=== PATIENT | male | born 1940 | race Caucasian/White ===

== ENCOUNTER 2021-08-18 12:35 | Inpatient (IN) ==
[2021-08-18] MEDS ORDERED: 0.9 % SODIUM CHLORIDE 1,000 ML IV ONE ×2 (12:58→12:59)
[2021-08-18] MEDS ORDERED: LOPERAMIDE 2 MG CAPSULE PO ONE (13:00)
[2021-08-18] MEDS ORDERED: ONDANSETRON 4 MG/2 ML VIAL IV ONE (13:00)
--- NOTE | 2021-08-18 13:00 | Emergency Department Note ---
HPI General Chief complaint: Nausea/Vomiting/Diarrhea Stated complaint: diarrhea/dehydration Time Seen by Provider: 08/18/21 12:55 Source: patient and family () Mode of arrival: EMS Limitations: altered mental status (Confusion) and other (Confusion) History of Present Illness HPI Narrative: Narrative: 81-year-old male presents to the emergency department because of diarrhea of 7 days duration along with nausea and vomiting. Patient is a poor historian and unable to provide good history. The reports that he has had poor p.o. intake for the last 2 days has not been eating drinking much for the last week and he has been sleeping a lot for the past week she states he has new confusion. states he had a CVA 3 months ago which left him with significant confusion and a right sided weakness. He is improved substantially since then and able to use his right upper extremity well although he still walks with a walker. She states that it was more significantly less confused a couple weeks ago but now the confusion has returned. Patient has a Pink catheter since the CVA. The patient at times denies any problems at all. Symptoms are constant. Nothing makes them better or worse. Not associated with any known food intake. Moderate symptoms. Related Data Previous Rx's Medication Instructions Recorded clopidogrel 75 mg tablet (Plavix) 75 mg PO QDAY #30 tab 07/31/21 atorvastatin 40 mg tablet (Lipitor) 40 mg PO QHS #90 tab 08/15/21 fluoxetine 20 mg capsule 20 mg PO QDAY #90 cap 08/15/21 hydrochlorothiazide 12.5 mg capsule 12.5 mg PO QDAY #90 cap 08/15/21 losartan 25 mg tablet 25 mg PO QDAY #90 tab 08/15/21 Allergies Allergy/AdvReac Type Severity Reaction Status Date / Time trees Allergy Unknown Unknown Uncoded 08/12/21 08:35 Review of Systems ROS ROS Narrative: Narrative: Limitations: ROS unobtainable due to patients medical condition [facility] Narrative Patient History Narrative: Narrative: Medical/Surgical/Family History All Active Problems Acute dehydration (Acute) Acute hyponatremia (Acute) Hypokalemia (Acute) Nausea vomiting and diarrhea (Acute) Confusion (Acute) Pink catheter in place (Acute) Urinary retention (Acute) Stroke (Acute) Hematoma (Acute) Hand pain, left (Acute) BPH (benign prostatic hyperplasia) (Acute) Nocturia (Acute) Hematuria (Acute) History of hernia repair (Chronic ~2000) Dysuria (Chronic) Hypertension (Chronic) GERD (gastroesophageal reflux disease) (Chronic) Hyperlipidemia (Chronic) Gout (Chronic) No pertinent past medical history (Chronic) History of surgery (Chronic ~1966) History of surgery on arm (Chronic ~1966) Hx of inguinal hernia surgery (Chronic ~2000) Medical History (Updated 08/18/21 @ 16:05 by Diego Adame MD) Dysuria GERD (gastroesophageal reflux disease) Gout Hyperlipidemia Hypertension No pertinent past medical history Surgical History History of hernia repair (~2000) x2 History of surgery (~1966) Left Leg History of surgery on arm (~1966) Lt Family History Father Throat cancer Mother Hypertension Social History Smoking Status: Never smoker Alcohol Intake Frequency: holiday/special occasion only Substance Use: does not use Exam Narrative Narrative: Narrative: General Limitations: altered mental status (Confusion) and other (Confusion) General appearance: Present alert and in no apparent distress Head Head: Present atraumatic and normocephalic Eye Eye: Present normal appearance and EOMI ENT ENT: Present mucous membranes dry Neck Neck: Present full ROM; Absent meningismus Respiratory Respiratory: Present normal lung sounds bilaterally; Absent respiratory distress Cardiovascular Cardiovascular: Present regular rate and normal rhythm Adbominal Abdominal: Present soft; Absent tenderness : Present other (Pink catheter in place) Neurological Neurological: Present alert and other (Confused. Thought the date was 1940. Thought Larry Collins was the president. Knew that he was in a hospital.) Psychiatric Psychiatric: Present normal affect and normal mood Skin Skin: Present warm (WNL), dry and other (Significant excoriation left arm. Patient states pruritic) Course Vital Signs Vital signs: Vital Signs Temperature 97.0 F 08/18/21 12:36 Pulse Rate 85 08/18/21 12:36 Respiratory Rate 16 08/18/21 12:36 Pulse Oximetry (%) 100 08/18/21 12:36 Temperature 97.0 F 08/18/21 12:36 Pulse Rate 81 08/18/21 15:02 Respiratory Rate 22 08/18/21 15:02 Blood Pressure 97/43 08/18/21 15:02 Pulse Oximetry (%) 100 08/18/21 15:02 [facility] MDM Narrative Medical decision making narrative: Narrative: 81-year-old male 3 months status post CVA now presents to the emergency department because of nausea vomiting diarrhea of 7 days duration with increasing confusion. Differential diagnosis includes gastrointestinal infection, persistent CVA symptoms, sepsis, viral versus bacterial infection, other. On arrival temperature was 97 degrees with a pulse ox of 100% on room air. Respiratory rate 16 blood pressure was 81/54 which is quite low. Heart rate was 80. There was concern about possible sepsis of blood cultures were obtained and patient was bolused 2000 mL which was 30 mL/kg and this 65 kg male. White count came back unremarkable hemoglobin greater than 13. Sodium 132 potassium 3.1 bicarb low at 19. Glucose elevated at 106. BUN was elevated at 35 with a creatinine that was elevated at 1.7. Lactic acid level was elevated 3.7. Initial urine showed large leukocytes final urinalysis still pending. I medicated the patient with 4 mg of loperamide p.o. and 4 mg of Zofran IV. The elevated lactic acid level is concerning without a clear reason why. The patient received a 2 L of normal saline and on reevaluation noted that the date was August 18, 2021 although he was unable to name the president and was leaning more towards [place]. I consulted the hospitalist Dr. Melchor who came down evaluated the patient and felt he was appropriate for admission. I ordered 1 g of ceftriaxone IV for the patient. I discussed the case with the . Lab Data Result diagrams: 08/18/21 12:45 08/18/21 12:45 Labs: Lab Results 08/18/21 08/18/21 08/18/21 Range/Units 12:45 12:45 12:45 WBC 10.4 (4.5-11.0) K/mcL RBC 4.63 (4.63-6.08) M/mcL Hgb 13.6 L (13.7-17.5) g/dL Hct 41.2 (40.1-51.0) % MCV 89.0 (80.0-100.0) fL MCH 29.4 (26.0-34.0) pg MCHC 33.0 (31.0-36.0) g/dL RDW 13.0 (11.5-14.5) % Plt Count 383 (140-440) K/mcL MPV 9.0 (7.4-10.4) fL Neut % (Auto) 67.4 (38.0-78.0) % Lymph % (Auto) 13.5 L (15.5-49.0) % [facility] % (Auto) 15.1 H (1.0-12.0) % Eos % (Auto) 3.4 (0.0-7.0) % Baso % (Auto) 0.6 (0.0-2.0) % Lymph # (Auto) 1.41 L (1.50-4.80) K/mcL [facility] # (Auto) 1.57 H (0.10-0.90) K/mcL Eos # (Auto) 0.35 (0.00-0.70) K/mcL Baso # (Auto) 0.06 (0.00-0.30) K/mcL Absolute Neutrophils 7.04 (1.80-8.00) K/mcL VBG Lactic Acid 3.7 H (0.5-2.0) mmol/L Sodium 132 L (133-145) mmol/L Potassium 3.1 L (3.3-5.1) mmol/L Chloride 97 (96-108) mmol/L Carbon Dioxide 19 L (22-30) mmol/L Anion Gap 16.0 (8.0-16.0) BUN 35 H (8-23) mg/dL Creatinine 1.7 H (0.7-1.2) mg/dL GFR Calculation 37 Glucose 106 H (70-105) mg/dL Calcium 9.3 (8.6-10.4) mg/dL Total Bilirubin 0.4 (0.1-1.0) mg/dL AST 30 (<40) U/L ALT 32 (<40) U/L Alkaline Phosphatase 196 H (39-117) U/L Total Protein 7.3 (5.9-8.4) gm/dL Albumin 2.9 L (3.2-5.2) gm/dL Globulin 4.4 H (2.2-3.7) gm/dL Albumin/Globulin Ratio 0.7 L (1.0-2.3) Urine Color Urine Appearance (Clear) Urine pH (5.0-9.0) Ur Specific [place] (1.000-1.035) Urine Protein (Negative) mg/dL Urine Glucose (UA) (Negative) mg/dL Urine Ketones (Negative) mg/dL Urine Occult Blood (Negative) mg/dL Urine Nitrate (Negative) Urine Bilirubin (Negative) mg/dL Urine Urobilinogen mg/dL Ur Leukocyte Esterase (Negative) /uL Urine RBC (0-3) /hpf Urine WBC (0-4) /hpf Ur Squamous Epith Cells (0-4) /hpf Urine Bacteria (0) /hpf Hyaline Casts (0-2) /lph Urine Mucus (None) /hpf Ur Culture Indicated? 08/18/21 Range/Units 13:50 WBC (4.5-11.0) K/mcL RBC (4.63-6.08) M/mcL Hgb (13.7-17.5) g/dL Hct (40.1-51.0) % MCV (80.0-100.0) fL MCH (26.0-34.0) pg MCHC (31.0-36.0) g/dL RDW (11.5-14.5) % Plt Count (140-440) K/mcL MPV (7.4-10.4) fL Neut % (Auto) (38.0-78.0) % Lymph % (Auto) (15.5-49.0) % [facility] % (Auto) (1.0-12.0) % Eos % (Auto) (0.0-7.0) % Baso % (Auto) (0.0-2.0) % Lymph # (Auto) (1.50-4.80) K/mcL [facility] # (Auto) (0.10-0.90) K/mcL Eos # (Auto) (0.00-0.70) K/mcL Baso # (Auto) (0.00-0.30) K/mcL Absolute Neutrophils (1.80-8.00) K/mcL VBG Lactic Acid (0.5-2.0) mmol/L Sodium (133-145) mmol/L Potassium (3.3-5.1) mmol/L Chloride (96-108) mmol/L Carbon Dioxide (22-30) mmol/L Anion Gap (8.0-16.0) BUN (8-23) mg/dL Creatinine (0.7-1.2) mg/dL GFR Calculation Glucose (70-105) mg/dL Calcium (8.6-10.4) mg/dL Total Bilirubin (0.1-1.0) mg/dL AST (<40) U/L ALT (<40) U/L Alkaline Phosphatase (39-117) U/L Total Protein (5.9-8.4) gm/dL Albumin (3.2-5.2) gm/dL Globulin (2.2-3.7) gm/dL Albumin/Globulin Ratio (1.0-2.3) Urine Color Yellow Urine Appearance Hazy A (Clear) Urine pH 6.0 (5.0-9.0) Ur Specific [place] 1.008 (1.000-1.035) Urine Protein Negative (Negative) mg/dL Urine Glucose (UA) Negative (Negative) mg/dL Urine Ketones Negative (Negative) mg/dL Urine Occult Blood Negative (Negative) mg/dL Urine Nitrate Negative (Negative) Urine Bilirubin Negative (Negative) mg/dL Urine Urobilinogen Negative mg/dL Ur Leukocyte Esterase 500 A (Negative) /uL Urine RBC 11 H (0-3) /hpf Urine WBC 20 H (0-4) /hpf Ur Squamous Epith Cells 0 (0-4) /hpf Urine Bacteria Few A (0) /hpf Hyaline Casts 34 H (0-2) /lph Urine Mucus Few A (None) /hpf Ur Culture Indicated? yes ED POC Tests ED POC Tests: SHANT - Influenza A Negative SHANT - Influenza B Negative SHANT - SARS Antigen Negative Discharge Plan Patient/Caregiver Discharge Instructions Pt seen by MEDICAL RECORDS COORDINATOR/PA only: No Clinical Impression: Acute dehydration, Acute hyponatremia, Hypokalemia, Nausea vomiting and diarrhea, Confusion Activity: as instructed Patient Disposition: Xfer Acute Care Hospital Condition: Fair Follow up with: Ryan Durand ARNP [Primary Care Provider] - Prescriptions: No Action atorvastatin [Lipitor] 40 mg tablet 40 mg PO QHS Qty: 90 1RF fluoxetine 20 mg capsule 20 mg PO QDAY Qty: 90 1RF hydrochlorothiazide 12.5 mg capsule 12.5 mg PO QDAY Qty: 90 1RF losartan 25 mg tablet 25 mg PO QDAY Qty: 90 1RF clopidogrel [Plavix] 75 mg tablet 75 mg PO QDAY Qty: 30 5RF
[2021-08-18 13:57] LABS: ALT/SGPT 32 U/L (<40); AST/SGOT 30 U/L (<40); Albumin 2.9 gm/dL (3.2-5.2); Albumin/Globulin Ratio 0.7 (1.0-2.3); Alkaline Phosphatase 196 U/L (39-117); Bilirubin,Total 0.4 mg/dL (0.1-1.0); Blood Urea Nitrogen 35 mg/dL (8-23); Calcium 9.3 mg/dL (8.6-10.4); Carbon Dioxide 19 mmol/L (22-30); Chloride 97 mmol/L (96-108); Globulin 4.4 gm/dL (2.2-3.7); Glomerular Filtration Rate 37; Glucose 106 mg/dL (70-105)
[2021-08-18 14:19] LABS: Basophils # (Auto) 0.06 K/mcL (0.00-0.30); Basophils % (Auto) 0.6 % (0.0-2.0); Eosinophils # (Auto) 0.35 K/mcL (0.00-0.70); Eosinophils % (Auto) 3.4 % (0.0-7.0); Hematocrit 41.2 % (40.1-51.0); Hemoglobin 13.6 g/dL (13.7-17.5); Lymphocytes # (Auto) 1.41 K/mcL (1.50-4.80); Lymphocytes % (Auto) 13.5 % (15.5-49.0); Monocytes # (Auto) 1.57 K/mcL (0.10-0.90); Monocytes % (Auto) 15.1 % (1.0-12.0); Neutrophils % (Auto) 67.4 % (38.0-78.0); Platelet Count 383 K/mcL (140-440); RBC 4.63 M/mcL (4.63-6.08); WBC 10.4 K/mcL (4.5-11.0)
[2021-08-18] MEDS ORDERED: cefTRIAXone 1 GM VIAL IV ONE (15:00)
--- NOTE | 2021-08-18 15:21 | Internal Med History&Physical ---
HPI History of Present Illness Patient information: Note initiated : 08/18/21 at 3:11 pm Service Date, if different from initiated Date: [] Patient: Edward Ardon 81 y/o M admitted on for diarrhea/dehydration. Chief Complaint: [] History of present illness: Mr. Ardon is a 81 year old M Presents to the ED with family for generalized weakness poor oral intake sleeping more than usual diarrhea and low blood pressure. Family take her blood pressure with us this morning systolic was in the 80s. And he seemed to have some confusion along with severely weak and thus brought into the ED. Patient had a stroke about 3 months ago did have effusion after the stroke and also some right side weakness. He still has some residual right-sided weakness per family but the confusion cleared up. Per family he has had poor oral intake for the past week just does not seem to have an appetite. Sleeping more. He just finished the last dose of an antibiotic he has been taking for a urinary tract infection. He does have a chronic Ortiz since a stroke and has been following with urology for urinary retention. In the ED urine dip did show leukocyte esterase although of note patient does have a chronic Ortiz catheter in place. But he was also found to be hypotensive in the ED with systolic of 81 in the ED. Lactate of 3.7. His sodium potassium were mildly low and his BUN/creatinine was elevated. Afebrile no leukocytosis. He did receive IV fluid bolus in the ED which did show some improvement in his mentation while there. Started on Rocephin IV in the ED. He is also had diarrhea lately for the past week he says about 3 times per day. And has had some nausea but no vomiting Review of Systems: Pertinent positives as above. Denies headache/fever/chills/vomiting/chest pain/cough/dyspnea. Remaining 10 point review of systems reviewed negative PFSH PFSH All Active Problems Ortiz catheter in place (Acute) Urinary retention (Acute) Stroke (Acute) Hematoma (Acute) Hand pain, left (Acute) BPH (benign prostatic hyperplasia) (Acute) Nocturia (Acute) Hematuria (Acute) History of hernia repair (Chronic ~2000) Dysuria (Chronic) Hypertension (Chronic) GERD (gastroesophageal reflux disease) (Chronic) Hyperlipidemia (Chronic) Gout (Chronic) No pertinent past medical history (Chronic) History of surgery (Chronic ~1966) History of surgery on arm (Chronic ~1966) Hx of inguinal hernia surgery (Chronic ~2000) Medical History (Updated 07/31/21 @ 14:39 by MARIA G Cuenca) Dysuria GERD (gastroesophageal reflux disease) Gout Hyperlipidemia Hypertension No pertinent past medical history Surgical History History of hernia repair (~2000) x2 History of surgery (~1966) Left Leg History of surgery on arm (~1966) Lt Family History Father Throat cancer Mother Hypertension Social History marital status: occupational status: retired alcohol intake frequency: holiday/special occasion only substance use type: does not use MEDS/ALLERGIES Home Medications and Allergies Home Medications Medication Instructions Recorded Confirmed Type loratadine 10 mg tablet 10 mg PO QDAY 09/26/20 08/12/21 History omeprazole 20 mg tablet,delayed 20 mg PO QDAY 09/26/20 08/12/21 History release bisacodyl 5 mg tablet,delayed 10 mg PO ONCE 07/31/21 08/12/21 History release (Dulcolax (bisacodyl)) clopidogrel 75 mg tablet (Plavix) 75 mg PO QDAY #30 tab 07/31/21 08/12/21 Rx tamsulosin 0.4 mg capsule (Flomax) 0.4 mg PO QDAY 07/31/21 08/12/21 History antibiotic unknown #1 ea 08/12/21 08/12/21 Rx atorvastatin 40 mg tablet (Lipitor) 40 mg PO QHS #90 tab 08/15/21 Rx fluoxetine 20 mg capsule 20 mg PO QDAY #90 cap 08/15/21 Rx hydrochlorothiazide 12.5 mg capsule 12.5 mg PO QDAY #90 cap 08/15/21 Rx losartan 25 mg tablet 25 mg PO QDAY #90 tab 08/15/21 Rx Allergies Allergy/AdvReac Type Severity Reaction Status Date / Time trees Allergy Unknown Unknown Uncoded 08/12/21 08:35 EXAM Constitutional Vitals: Temp Pulse Resp BP Pulse Ox 97.0 F 80 18 96/62 98 08/18/21 12:36 08/18/21 14:46 08/18/21 14:46 08/18/21 14:46 08/18/21 14:46 Exam: General: Alert, Awake, No acute Distress Eyes/N/T: EOMI, PERRL, dry MM Head/Neck: neck supple, normocephalic atraumatic CV: RRR, No murmurs, normal s1/s2 Pulm: Clear b/l, no wheezing/rhonchi/rales Abd: soft, nontender, +BS x4, Ortiz catheter in place Ext: no clubbing/cyanosis/edema Neuro: Alert, moves all extremities, CN 2-12 grossly intact, sensations intact b/l upper/lower Skin: warm/dry DATA Data Completed and Pending Labs: Labs from last 24 hours 08/18/21 08/18/21 08/18/21 13:50 12:45 12:45 WBC RBC Hgb Hct MCV MCH MCHC RDW Plt Count MPV Neut % (Auto) Lymph % (Auto) [place] % (Auto) Eos % (Auto) Baso % (Auto) Lymph # (Auto) [place] # (Auto) Eos # (Auto) Baso # (Auto) Absolute Neutrophils VBG Lactic Acid 3.7 H Sodium 132 L Potassium 3.1 L Chloride 97 Carbon Dioxide 19 L Anion Gap 16.0 BUN 35 H Creatinine 1.7 H GFR Calculation 37 Glucose 106 H Calcium 9.3 Total Bilirubin 0.4 AST 30 ALT 32 Alkaline Phosphatase 196 H Total Protein 7.3 Albumin 2.9 L Globulin 4.4 H Albumin/Globulin Ratio 0.7 L Urine Color Pending Urine Appearance Pending Urine pH Pending Ur Specific [place] Pending Urine Protein Pending Urine Glucose (UA) Pending Urine Ketones Pending Urine Occult Blood Pending Urine Nitrate Pending Urine Bilirubin Pending Urine Urobilinogen Pending Ur Leukocyte Esterase Pending 08/18/21 12:45 WBC 10.4 RBC 4.63 Hgb 13.6 L Hct 41.2 MCV 89.0 MCH 29.4 MCHC 33.0 RDW 13.0 Plt Count 383 MPV 9.0 Neut % (Auto) 67.4 Lymph % (Auto) 13.5 L [place] % (Auto) 15.1 H Eos % (Auto) 3.4 Baso % (Auto) 0.6 Lymph # (Auto) 1.41 L [place] # (Auto) 1.57 H Eos # (Auto) 0.35 Baso # (Auto) 0.06 Absolute Neutrophils 7.04 VBG Lactic Acid Sodium Potassium Chloride Carbon Dioxide Anion Gap BUN Creatinine GFR Calculation Glucose Calcium Total Bilirubin AST ALT Alkaline Phosphatase Total Protein Albumin Globulin Albumin/Globulin Ratio Urine Color Urine Appearance Urine pH Ur Specific [place] Urine Protein Urine Glucose (UA) Urine Ketones Urine Occult Blood Urine Nitrate Urine Bilirubin Urine Urobilinogen Ur Leukocyte Esterase A/P Narrative A/P Narrative: A: *UTI?: Although chronic Ortiz makes urinalysis difficult to interpret patient has been on antibiotics recently *possible sepsis w/Lactic acidosis: *Hypotension: 2/2 sepsis vs Hypovolemia (poor oral intake/diarrhea) & ARB/diuretics *Encephalopathy: 2/2 above *Hyponatremia/hypokalemia, mild *MEEK on CKD III: *Volume depletion: *Non-gap Acidosis: 2/2 diarrhea *h/o CVA w/residual mild right hemiparesis: on plavix/statin *UR w/chronic ortiz: Follows with urology *HTN: on ARB/HCTZ *Depression: *GERD: *Diarrhea: P: -IVF, follow-up lactate -Rocephin pending UC -stool cx & C. difficile -change ortiz -hold ARB/HCTZ for hypotension & MEEK -cont plavix/statin -Home medication reconciliation -PT/OT -ppx: Lovenox / home PPI DNR Time Spent With Patient Time: Total time spent is greater than 50% in coordination of care (as documented) at patient's floor/unit and/or counseling patient:
[2021-08-18 15:26] LABS: Appearance,Urine HAZY (Clear); Bacteria,Urine FEW /hpf (0); Bilirubin,Urine Negative (Negative); Color,Urine YELLOW; Culture Indicated,Urine yes; Glucose,Urine (UA) Negative (Negative); Ketones,Urine Negative (Negative); Leukocyte Esterase,Urine 500 /uL (Negative); Mucus,Urine FEW /hpf; Nitrate,Urine Negative (Negative); Protein,Urine Negative (Negative); Specific Gravity,Urine 1.008 (1.000-1.035); Urine Blood Negative (Negative); Urine Hyaline Cast 34 /lph (0-2); Urine RBC 11 /hpf (0-3); Urine Squamous Epithelial Cell 0 /hpf (0-4); Urine WBC 20 /hpf (0-4); Urobilinogen,Urine Negative
[2021-08-18] MEDS ORDERED: ONDANSETRON 4 MG/2 ML VIAL IV PRN (16:44)
[2021-08-18] MEDS ORDERED: MAGNESIUM SULFATE 2 GM/50 ML BAG IV PRN (16:44)
[2021-08-18] MEDS ORDERED: cefTRIAXone 1 GM in DEXTROSE 5% IN WATER 50 ML IV SCH (16:44)
[2021-08-18] MEDS ORDERED: ACETAMINOPHEN 325 MG TABLET PO PRN (16:44)
[2021-08-18] MEDS ORDERED: POTASSIUM CHLORIDE 20 MEQ TABLET PO ONE (16:44)
[2021-08-18] MEDS ORDERED: POTASSIUM CHLORIDE 40 MEQ in DEXTROSE 5% IN WATER 500 ML IV PRN (16:44)
[2021-08-18] MEDS ORDERED: POTASSIUM CHLORIDE 20 MEQ TABLET PO PRN ×2 (16:44)
[2021-08-18] MEDS ORDERED: IPRATROPIUM/ALBUTEROL 3 ML AMPUL.NEB NEB PRN (16:44)
[2021-08-18] MEDS: 0.9 % SODIUM CHLORIDE 1,000 ML IV SCH (17:31)
[2021-08-19] MEDS: 0.9 % SODIUM CHLORIDE 10 ML SYRINGE IV SCH ×4 (00:43→21:02)
[2021-08-19] MEDS: 0.9 % SODIUM CHLORIDE 1,000 ML IV SCH (07:37)
[2021-08-19] MEDS: PANTOPRAZOLE 40 MG TABLET PO SCH (07:38)
--- NOTE | 2021-08-19 07:59 | Internal Med Progress Note ---
SUBJECTIVE Subjective Patient information: Note initiated : 08/19/21 at 7:56 am Service Date, if different from initiated Date: [] Patient: Edward Ardon 81 y/o M admitted on 08/18/21 for diarrhe a/dehydration. Chief Complaint: [] Interval history: History of present illness: Mr. Ardon is a 81 year old M Presents to the ED with family for generalized weakness poor oral intake sleeping more than usual diarrhea and low blood pressure. Family take her blood pressure with us this morning systolic was in the 80s. And he seemed to have some confusion along with severely weak and thus brought into the ED. Patient had a stroke about 3 months ago did have effusion after the stroke and also some right side weakness. He still has some residual right-sided weakness per family but the confusion cleared up. Per family he has had poor oral intake for the past week just does not seem to have an appetite. Sleeping more. He just finished the last dose of an antibiotic he has been taking for a urinary tract infection. He does have a chronic Ortiz since a stroke and has been following with urology for urinary retention. In the ED urine dip did show leukocyte esterase although of note patient does have a chronic Ortiz catheter in place. But he was also found to be hypotensive in the ED with systolic of 81 in the ED. Lactate of 3.7. His sodium potassium were mildly low and his BUN/creatinine was elevated. Afebrile no leukocytosis. He did receive IV fluid bolus in the ED which did show some improvement in his mentation while there. Started on Rocephin IV in the ED. He is also had diarrhea lately for the past week he says about 3 times per day. And has had some nausea but no vomiting 08/19 Patient feeling a bit better today. No overnight events or new complaints. Electrolytes improved today. Creatinine mildly improved. Still appears to be needing a little more IV fluid. Urine culture. Review of Systems: denies headache/fever/chills/nausea/vomiting/chest or abdominal pain/cough/dyspnea/diarrhea. Otherwise see above. Constitutional Vitals: Vital Signs Temp Pulse Resp BP Pulse Ox 98.2 F 72 14 96/59 97 08/19/21 03:36 08/19/21 03:36 08/19/21 03:36 08/19/21 03:36 08/19/21 03:36 Period Temp Pulse Resp BP Sys/Pagan Pulse Ox Last 24 Hr 97.0 F-98.6 F 70-85 13-22 81-105/43-68 96-100 Intake and Output 08/18/21 08/19/21 08/19/21 21:59 05:59 13:59 Intake Total 2820 066 9925 Output Total 425 750 Balance 815 -450 1000 Weight 60.781 kg Intake & Output: Intake & Output 08/18/21 08/19/21 08/19/21 21:59 05:59 13:59 Intake Total 8462 510 9237 Output Total 425 750 Balance 815 -450 1000 Weight 60.781 kg Intake: IV 1000 1000 Sodium Chloride 0.9% 1,000 ml @ 1000 1000 75 mls/hr IV .[id number] [facility] Rx#: [id number] Oral 240 300 Output: Urine Catheter Amount 425 Void Amount 750 Other: Meal Dinner Percent of Meal Consumed 75% Feeding Ability Independent Urine Appearance Clear Urine Color Bright Yellow Exam: General: Alert, Awake, No acute Distress Eyes/N/T: EOMI, Head/Neck: neck supple, CV: RRR, No murmurs, Pulm: Clear b/l, no wheezing/rhonchi/rales Abd: soft, nontender, +BS x4, Ortiz catheter in place Ext: no clubbing/cyanosis/edema Neuro: Alert, moves all extremities, Skin: warm/dry OBJ DATA Labs CBC & Chem 7: 08/18/21 12:45 08/19/21 05:19 Labs: Abnormal Lab Results 08/18/21 08/18/21 08/18/21 13:50 12:45 12:45 Hgb Lymph % (Auto) [place] % (Auto) Lymph # (Auto) [place] # (Auto) VBG Lactic Acid 3.7 H Sodium 132 L Potassium 3.1 L Carbon Dioxide 19 L BUN 35 H Creatinine 1.7 H Glucose 106 H Alkaline Phosphatase 196 H Albumin 2.9 L Globulin 4.4 H Albumin/Globulin Ratio 0.7 L Urine Appearance Hazy A Ur Leukocyte Esterase 500 A Urine RBC 11 H Urine WBC 20 H Urine Bacteria Few A Hyaline Casts 34 H Urine Mucus Few A 08/18/21 12:45 Hgb 13.6 L Lymph % (Auto) 13.5 L [place] % (Auto) 15.1 H Lymph # (Auto) 1.41 L [place] # (Auto) 1.57 H VBG Lactic Acid Sodium Potassium Carbon Dioxide BUN Creatinine Glucose Alkaline Phosphatase Albumin Globulin Albumin/Globulin Ratio Urine Appearance Ur Leukocyte Esterase Urine RBC Urine WBC Urine Bacteria Hyaline Casts Urine Mucus Meds: Medications Acetaminophen (Acetaminophen 325 Mg Tablet) 650 mg PO Q6HP PRN; Protocol PRN Reason: Per Pain Protocol/Fever > 101 Albuterol/Ipratropium (Ipratropium/Albuterol 3 Ml Ampul.Neb) 3 ml NEB Q4HP PRN PRN Reason: Shortness Of Breath Ceftriaxone Sodium (Ceftriaxone 1 Gm Vial) 1 gm IV Q24H [facility] Enoxaparin Sodium (Enoxaparin 40 Mg/0.4 Ml Syringe) 40 mg SQ DAILY [facility] Potassium Chloride 40 meq/ (Dextrose) 520 mls @ 130 mls/hr IV UD PRN PRN Reason: Potassium < 3 Magnesium Sulfate (Magnesium Sulfate) 2 gm in 50 mls @ 50 mls/hr IV UD PRN PRN Reason: Magnesium </= 1.6 Sodium Chloride (Sodium Chloride 0.9%) 1,000 mls @ 75 mls/hr IV .[id number] [facility] Stop: 08/19/21 19:23 Last Admin: 08/19/21 07:37 Dose: 75 mls/hr Documented by: Ondansetron HCl (Ondansetron 4 Mg/2 Ml Vial) 4 mg IV Q4HP PRN PRN Reason: Nausea And Vomiting Pantoprazole Sodium (Pantoprazole 40 Mg Tablet) 40 mg PO QAMAC [facility] Last Admin: 08/19/21 07:38 Dose: 40 mg Documented by: Potassium Chloride (Potassium Chloride 20 Meq Tablet) 40 meq PO UD PRN PRN Reason: Potssium is 3-3.5 Potassium Chloride (Potassium Chloride 20 Meq Tablet) 40 meq PO UD PRN PRN Reason: Potassium < 3 Sodium Chloride (0.9 % Sodium Chloride 10 Ml Syringe) 10 ml IV Q8 [facility] Last Admin: 08/19/21 05:52 Dose: Not Given Documented by: A/P Narrative A/P Narrative: A: *UTI: Although chronic Ortiz makes urinalysis difficult to interpret patient has been on antibiotics recently *Sepsis w/Lactic acidosis(resolved): *Hypotension: 2/2 sepsis vs Hypovolemia (poor oral intake/diarrhea) & ARB/diuretics -still low but improved *Encephalopathy, likely some baseline memory issues from recent stroke: 2/2 above -Improved *Hyponatremia/hypokalemia, mild: improved *MEEK on CKD III: mildly improved *Volume depletion: improving *Non-gap Acidosis: 2/2 diarrhea *h/o CVA w/residual mild right hemiparesis: on plavix/statin *UR w/chronic ortiz: Follows with urology -ortiz changed 48hrs prior to admit *HTN: on ARB/HCTZ *Depression: *GERD: *Diarrhea: no BM o/n P: -IVF -Rocephin pending UC -stool cx & C. difficile -hold ARB/HCTZ for hypotension & MEEK -cont plavix/statin -PT/OT -ppx: Lovenox / home PPI DNR Time Spent With Patient Time: Total time spent is greater than 50% in coordination of care (as documented) at patient's floor/unit and/or counseling patient:
[2021-08-19 08:08] LABS: ALT/SGPT 25 U/L (<40); AST/SGOT 24 U/L (<40); Albumin 2.7 gm/dL (3.2-5.2); Albumin/Globulin Ratio 0.8 (1.0-2.3); Alkaline Phosphatase 166 U/L (39-117); Bilirubin,Direct < 0.2 mg/dL (0-0.3); Bilirubin,Total 0.3 mg/dL (0.1-1.0); Blood Urea Nitrogen 27 mg/dL (8-23); Calcium 8.7 mg/dL (8.6-10.4); Carbon Dioxide 19 mmol/L (22-30); Chloride 105 mmol/L (96-108); Globulin 3.3 gm/dL (2.2-3.7); Glomerular Filtration Rate 43; Glucose 81 mg/dL (70-105); Lactate Dehydrogenase 174 U/L (135-225); Phosphorous 2.9 mg/dL (2.5-4.5); Triglycerides 90 mg/dL (<150); Uric Acid 10.5 mg/dL (2.5-8.0)
[2021-08-19] MEDS: ENOXAPARIN 40 MG/0.4 ML SYRINGE SQ SCH (08:38)
[2021-08-19] MEDS: FLUoxetine HCL 20 MG CAPSULE PO SCH (08:38)
[2021-08-19] MEDS: CLOPIDOGREL 75 MG TABLET PO SCH (08:38)
[2021-08-19] MEDS: cefTRIAXone 1 GM VIAL IV SCH (10:15)
[2021-08-19 10:18] LABS: Basophils # (Auto) 0.05 K/mcL (0.00-0.30); Basophils % (Auto) 0.7 % (0.0-2.0); Eosinophils # (Auto) 0.49 K/mcL (0.00-0.70); Eosinophils % (Auto) 7.1 % (0.0-7.0); Hematocrit 37.3 % (40.1-51.0); Hemoglobin 12.4 g/dL (13.7-17.5); Lymphocytes # (Auto) 1.35 K/mcL (1.50-4.80); Lymphocytes % (Auto) 19.6 % (15.5-49.0); Mean Cell Volume 88.2 fL (80.0-100.0); Mean Corpuscular HGB Conc 33.2 g/dL (31.0-36.0); Mean Platelet Volume 8.6 fL (7.4-10.4); Monocytes % (Auto) 13.1 % (1.0-12.0); Neutrophils % (Auto) 59.5 % (38.0-78.0); Platelet Count 370 K/mcL (140-440); RBC 4.23 M/mcL (4.63-6.08); Red Cell Distribution Width 13.1 % (11.5-14.5); WBC 6.9 K/mcL (4.5-11.0)
[2021-08-19] MEDS: ATORVASTATIN 40 MG TABLET PO SCH (21:02)
--- NOTE | 2021-08-20 07:36 | Internal Med Progress Note ---
SUBJECTIVE Subjective Patient information: Note initiated : 08/20/21 at 7:33 am Service Date, if different from initiated Date: [] Patient: Edward Ardon 81 y/o M admitted on 08/18/21 for diarrhe a/dehydration. Chief Complaint: [] Interval history: History of present illness: Mr. Ardon is a 81 year old M Presents to the ED with family for generalized weakness poor oral intake sleeping more than usual diarrhea and low blood pressure. Family take her blood pressure with us this morning systolic was in the 80s. And he seemed to have some confusion along with severely weak and thus brought into the ED. Patient had a stroke about 3 months ago did have effusion after the stroke and also some right side weakness. He still has some residual right-sided weakness per family but the confusion cleared up. Per family he has had poor oral intake for the past week just does not seem to have an appetite. Sleeping more. He just finished the last dose of an antibiotic he has been taking for a urinary tract infection. He does have a chronic Ortiz since a stroke and has been following with urology for urinary retention. In the ED urine dip did show leukocyte esterase although of note patient does have a chronic Ortiz catheter in place. But he was also found to be hypotensive in the ED with systolic of 81 in the ED. Lactate of 3.7. His sodium potassium were mildly low and his BUN/creatinine was elevated. Afebrile no leukocytosis. He did receive IV fluid bolus in the ED which did show some improvement in his mentation while there. Started on Rocephin IV in the ED. He is also had diarrhea lately for the past week he says about 3 times per day. And has had some nausea but no vomiting 08/19 Patient feeling a bit better today. No overnight events or new complaints. Electrolytes improved today. Creatinine mildly improved. Still appears to be needing a little more IV fluid. Urine culture. 08/20 Patient says he feels a bit more tired today but otherwise no other complaints. Waiting for morning labs . C. difficile positive I believe, clarifying PCR test. Review of Systems: denies headache/fever/chills/nausea/vomiting/chest or abdominal pain/cough/dyspnea/diarrhea. Otherwise see above. Constitutional Vitals: Vital Signs Temp Pulse Resp BP Pulse Ox 98.0 F 75 16 105/57 98 08/20/21 03:28 08/20/21 03:28 08/20/21 03:28 08/20/21 03:28 08/20/21 03:28 Period Temp Pulse Resp BP Sys/Pagan Pulse Ox Last 24 Hr 97.1 F-98.6 F 69-75 14-20 89-105/52-60 95-98 Intake and Output 08/19/21 08/20/21 08/20/21 21:59 05:59 13:59 Intake Total 1250 125 Output Total 650 600 Balance 600 -475 Weight 61.915 kg Intake & Output: Intake & Output 08/19/21 08/20/21 08/20/21 21:59 05:59 13:59 Intake Total 1250 125 Output Total 650 600 Balance 600 -475 Weight 61.915 kg Intake: IV 1000 Sodium Chloride 0.9% 1,000 ml @ 1000 75 mls/hr IV .[id number] PATRICIA Rx#: [id number] Oral 250 125 Output: Urine Catheter Amount 650 600 Other: Meal Lunch Percent of Meal Consumed Refused Urine Appearance Clear Urine Color Dark Yellow Bright Yellow Urine Odor Foul Stool Size Smear Stool Color Green Pale # of times incontinent of 1 Bowels Exam: General: Alert, Awake, No acute Distress Eyes/N/T: EOMI, Head/Neck: neck supple, CV: RRR, No murmurs, Pulm: Clear b/l, no wheezing/rhonchi/rales Abd: soft, nontender, +BS x4, Ortiz catheter in place Ext: no clubbing/cyanosis/edema Neuro: Alert, moves all extremities, Skin: warm/dry OBJ DATA Labs CBC & Chem 7: 08/19/21 05:19 08/19/21 05:19 Labs: Abnormal Lab Results 08/19/21 08/19/21 08/18/21 05:19 05:19 13:50 RBC 4.23 L Hgb 12.4 L Hct 37.3 L Lymph % (Auto) Bartholomew % (Auto) 13.1 H Eos % (Auto) 7.1 H Lymph # (Auto) 1.35 L Bartholomew # (Auto) VBG Lactic Acid Sodium Potassium Carbon Dioxide 19 L BUN 27 H Creatinine 1.5 H Glucose Uric Acid 10.5 H GGT 69 H Alkaline Phosphatase 166 H Albumin 2.7 L Globulin Albumin/Globulin Ratio 0.8 L Urine Appearance Hazy A Ur Leukocyte Esterase 500 A Urine RBC 11 H Urine WBC 20 H Urine Bacteria Few A Hyaline Casts 34 H Urine Mucus Few A 08/18/21 08/18/21 08/18/21 12:45 12:45 12:45 RBC Hgb 13.6 L Hct Lymph % (Auto) 13.5 L Bartholomew % (Auto) 15.1 H Eos % (Auto) Lymph # (Auto) 1.41 L Bartholomew # (Auto) 1.57 H VBG Lactic Acid 3.7 H Sodium 132 L Potassium 3.1 L Carbon Dioxide 19 L BUN 35 H Creatinine 1.7 H Glucose 106 H Uric Acid GGT Alkaline Phosphatase 196 H Albumin 2.9 L Globulin 4.4 H Albumin/Globulin Ratio 0.7 L Urine Appearance Ur Leukocyte Esterase Urine RBC Urine WBC Urine Bacteria Hyaline Casts Urine Mucus Meds: Medications Acetaminophen (Acetaminophen 325 Mg Tablet) 650 mg PO Q6HP PRN; Protocol PRN Reason: Per Pain Protocol/Fever > 101 Albuterol/Ipratropium (Ipratropium/Albuterol 3 Ml Ampul.Neb) 3 ml NEB Q4HP PRN PRN Reason: Shortness Of Breath Atorvastatin Calcium (Atorvastatin 40 Mg Tablet) 40 mg PO QHS [facility] Last Admin: 08/19/21 21:02 Dose: 40 mg Documented by: Ceftriaxone Sodium (Ceftriaxone 1 Gm Vial) 1 gm IV Q24H [facility] Last Admin: 08/19/21 10:15 Dose: 1 gm Documented by: Clopidogrel Bisulfate (Clopidogrel 75 Mg Tablet) 75 mg PO QDAY [facility] Last Admin: 08/19/21 08:38 Dose: 75 mg Documented by: Enoxaparin Sodium (Enoxaparin 40 Mg/0.4 Ml Syringe) 40 mg SQ DAILY [facility] Last Admin: 08/19/21 08:38 Dose: 40 mg Documented by: Fluoxetine HCl (Fluoxetine Hcl 20 Mg Capsule) 20 mg PO QDAY [facility] Last Admin: 08/19/21 08:38 Dose: 20 mg Documented by: Potassium Chloride 40 meq/ (Dextrose) 520 mls @ 130 mls/hr IV UD PRN PRN Reason: Potassium < 3 Magnesium Sulfate (Magnesium Sulfate) 2 gm in 50 mls @ 50 mls/hr IV UD PRN PRN Reason: Magnesium </= 1.6 Ondansetron HCl (Ondansetron 4 Mg/2 Ml Vial) 4 mg IV Q4HP PRN PRN Reason: Nausea And Vomiting Pantoprazole Sodium (Pantoprazole 40 Mg Tablet) 40 mg PO QAMAC [facility] Last Admin: 08/19/21 07:38 Dose: 40 mg Documented by: Potassium Chloride (Potassium Chloride 20 Meq Tablet) 40 meq PO UD PRN PRN Reason: Potssium is 3-3.5 Potassium Chloride (Potassium Chloride 20 Meq Tablet) 40 meq PO UD PRN PRN Reason: Potassium < 3 Sodium Chloride (0.9 % Sodium Chloride 10 Ml Syringe) 10 ml IV Q8 [facility] Last Admin: 08/19/21 21:02 Dose: 10 ml Documented by: A/P Narrative A/P Narrative: A: *UTI: Although chronic Ortiz makes urinalysis difficult to interpret patient has been on antibiotics recently *?C. Diff Colitis: *Sepsis w/Lactic acidosis(resolved): improved *Hypotension: 2/2 sepsis vs Hypovolemia (poor oral intake/diarrhea) & ARB/diuretics -still low-normal but improved *Encephalopathy, likely some baseline memory issues from recent stroke: 2/2 above -Improved *Hyponatremia/hypokalemia, mild: improved *MEEK on CKD III: mildly improved *Volume depletion: improving *Non-gap Acidosis: 2/2 diarrhea *h/o CVA w/residual mild right hemiparesis: on plavix/statin *UR w/chronic ortiz: Follows with urology -ortiz changed 48hrs prior to admit *HTN: on ARB/HCTZ *Depression: *GERD: *Diarrhea: no BM o/n P: -IVF d/c -Rocephin pending UC -PO Vanco - -hold ARB/HCTZ for hypotension & MEEK -cont plavix/statin -PT/OT -ppx: Lovenox / home PPI DNR Time Spent With Patient Time: Total time spent is greater than 50% in coordination of care (as documented) at patient's floor/unit and/or counseling patient:
[2021-08-20 08:09] LABS: ALT/SGPT 20 U/L (<40); AST/SGOT 18 U/L (<40); Albumin 2.7 gm/dL (3.2-5.2); Albumin/Globulin Ratio 0.8 (1.0-2.3); Alkaline Phosphatase 159 U/L (39-117); Bilirubin,Direct < 0.2 mg/dL (0-0.3); Bilirubin,Total 0.3 mg/dL (0.1-1.0); Blood Urea Nitrogen 16 mg/dL (8-23); Calcium 8.9 mg/dL (8.6-10.4); Carbon Dioxide 22 mmol/L (22-30); Chloride 107 mmol/L (96-108); Globulin 3.2 gm/dL (2.2-3.7); Glomerular Filtration Rate 62; Glucose 80 mg/dL (70-105); Lactate Dehydrogenase 153 U/L (135-225); Phosphorous 2.7 mg/dL (2.5-4.5); Triglycerides 111 mg/dL (<150); Uric Acid 9.5 mg/dL (2.5-8.0)
[2021-08-20] MEDS ORDERED: MAGNESIUM SULFATE 2 GM/50 ML BAG IV ONE (08:58)
--- NOTE | 2021-08-20 09:04 | Discharge Summary ---
Discharge Provider Provider Patient information: Note initiated : 08/20/21 at 9:03 am Service Date, if different from initiated Date: [] Patient: Edward Ardon 81 y/o M admitted on 08/18/21 for diarrhea/dehydration. Chief Complaint: [] Date of admission: 08/18/21 16:38 Discharge date: 08/21/21 Primary care physician: MARIA G Cuenca Consults: 08/18/21 Consult to Physician [CONS] Stat Comment: Consulting Provider: Brain Melchor Reason For Exam: Physician to Consult Discharge Meds Discharge Medications Home Medications clopidogrel 75 mg tablet (Plavix) 75 mg PO QDAY #30 tab 07/31/21 [Rx Confirmed 08/18/21 Last Taken Unknown] atorvastatin 40 mg tablet (Lipitor) 40 mg PO QHS #90 tab 08/15/21 [Rx Confirmed 08/18/21 Last Taken Unknown] fluoxetine 20 mg capsule 20 mg PO QDAY #90 cap 08/15/21 [Rx Confirmed 08/18/21 Last Taken Unknown] vancomycin 125 mg capsule 125 mg PO QID #36 cap 08/20/21 [Rx Last Taken Unknown] COURSE Hospital Course Hospital course: Chief Complaint: [] Interval history: History of present illness: Mr. Ardon is a 81 year old M Presents to the ED with family for generalized weakness poor oral intake sleeping more than usual diarrhea and low blood pressure. Family take her blood pressure with us this morning systolic was in the 80s. And he seemed to have some confusion along with severely weak and thus brought into the ED. Patient had a stroke about 3 months ago did have effusion after the stroke and also some right side weakness. He still has some residual right-sided weakness per family but the confusion cleared up. Per family he has had poor oral intake for the past week just does not seem to have an appetite. Sleeping more. He just finished the last dose of an antibiotic he has been taking for a urinary tract infection. He does have a chronic Ortiz since a stroke and has been following with urology for urinary retention. In the ED urine dip did show leukocyte esterase although of note patient does have a chronic Ortiz catheter in place. But he was also found to be hypotensive in the ED with systolic of 81 in the ED. Lactate of 3.7. His sodium potassium were mildly low and his BUN/creatinine was elevated. Afebrile no leukocytosis. He did receive IV fluid bolus in the ED which did show some improvement in his mentation while there. Started on Rocephin IV in the ED. He is also had diarrhea lately for the past week he says about 3 times per day. And has had some nausea but no vomiting 08/19 Patient feeling a bit better today. No overnight events or new complaints. Electrolytes improved today. Creatinine mildly improved. Still appears to be needing a little more IV fluid. Urine culture. 08/20 Patient says he feels a bit more tired today but otherwise no other complaints. Waiting for morning labs . C. difficile positive 08/21 Patient continues to feel better. No new complaints overnight event. *ARB and hydrochlorothiazide held for low blood pressure A: *C. Diff Colitis: *?UTI?: chronic Ortiz makes urinalysis difficult to interpret patient has been on antibiotics recently -no growth on UC, no UTI *Sepsis w/Lactic acidosis(resolved): improved *Hypotension: 2/2 sepsis vs Hypovolemia (poor oral intake/diarrhea) & ARB/diuretics *Encephalopathy, likely some baseline memory issues from recent stroke: 2/2 above *Hyponatremia/hypokalemia, mild: improved *MEEK on CKD III: mildly improved *Volume depletion: improving *Non-gap Acidosis: 2/2 diarrhea *h/o CVA w/residual mild right hemiparesis: on plavix/statin *UR w/chronic ortiz: Follows with urology -ortiz changed 48hrs prior to admit *HTN: on ARB/HCTZ *Depression: *GERD: Discharge diagnosis: C. difficile colitis questionable UTI sepsis lactic acidosis hypotension Secondary discharge diagnosis: Acute kidney injury electrolyte imbalance volume depletion nongap acidosis history of stroke urinary retention chronic Ortiz hypertension depression GERD Time Spent with Patient Time attestation: Total time spent providing and/or coordinating discharge services: Time spent: Greater than 30 minutes EXAM Constitutional Vitals: Temp Pulse Resp BP Pulse Ox 98.7 F 81 16 120/73 98 08/20/21 08:00 08/20/21 08:00 08/20/21 08:00 08/20/21 08:00 08/20/21 08:00 Discharge Data Data Completed and Pending Labs on day of discharge: Labs from last 24 hours 08/20/21 08/19/21 05:41 05:19 WBC 6.9 RBC 4.23 L Hgb 12.4 L Hct 37.3 L MCV 88.2 MCH 29.3 MCHC 33.2 RDW 13.1 Plt Count 370 MPV 8.6 Neut % (Auto) 59.5 Lymph % (Auto) 19.6 Page % (Auto) 13.1 H Eos % (Auto) 7.1 H Baso % (Auto) 0.7 Lymph # (Auto) 1.35 L Page # (Auto) 0.90 Eos # (Auto) 0.49 Baso # (Auto) 0.05 Absolute Neutrophils 4.10 Sodium 138 Potassium 3.7 Chloride 107 Carbon Dioxide 22 Anion Gap 9.0 BUN 16 Creatinine 1.1 GFR Calculation 62 Glucose 80 Uric Acid 9.5 H Calcium 8.9 Phosphorus 2.7 Magnesium 1.5 L Total Bilirubin 0.3 Direct Bilirubin < 0.2 GGT 62 H AST 18 ALT 20 Alkaline Phosphatase 159 H Lactate Dehydrogenase 153 Total Protein 5.9 Albumin 2.7 L Globulin 3.2 Albumin/Globulin Ratio 0.8 L Triglycerides 111 Preliminary micro results at discharge 08/18/21 12:50 Blood Culture - Preliminary Blood 08/18/21 12:41 Blood Culture - Preliminary Blood 08/18/21 13:50 Urine Culture - Preliminary Urine - Ortiz Discharge Plan Patient/Caregiver Discharge Instructions Activity: increase activity as tolerated and as instructed Diet: Regular Diet Activity Restrictions/Additional Instructions: Losartan and hydrochlorothiazide held for low blood pressure, hold these medications until seen by PCP. Monitor blood pressure twice daily and bring log to PCP. Prescriptions: New vancomycin 125 mg capsule 125 mg PO QID Qty: 36 0RF Continued atorvastatin [Lipitor] 40 mg tablet 40 mg PO QHS Qty: 90 1RF fluoxetine 20 mg capsule 20 mg PO QDAY Qty: 90 1RF clopidogrel [Plavix] 75 mg tablet 75 mg PO QDAY Qty: 30 5RF Discontinued hydrochlorothiazide 12.5 mg capsule 12.5 mg PO QDAY Qty: 90 1RF losartan 25 mg tablet 25 mg PO QDAY Qty: 90 1RF Follow Up Plan Follow up with: Ryan Durand ARNP [Primary Care Provider] - Patient Disposition: Xfer SNF Prognosis: Fair Rehab Potential: Fair I certify that the patient requires SNF services: Yes Overall status at discharge: patient is progressing back to baseline Discharge Orders: Discharge Order (Routine); Ordered 08/21/21 Ordered By: Brain Melchor
[2021-08-20] MEDS: PANTOPRAZOLE 40 MG TABLET PO SCH (11:53)
[2021-08-20] MEDS: CLOPIDOGREL 75 MG TABLET PO SCH (11:54)
[2021-08-20] MEDS: ENOXAPARIN 40 MG/0.4 ML SYRINGE SQ SCH (11:54)
[2021-08-20] MEDS: cefTRIAXone 1 GM VIAL IV SCH (11:55)
[2021-08-20] MEDS: FLUoxetine HCL 20 MG CAPSULE PO SCH (11:55)
[2021-08-20] MEDS: VANCOMYCIN ORAL SOL 1,000 MG/10 ML BOTTLE PO SCH ×4 (12:26→20:43)
[2021-08-20] MEDS: 0.9 % SODIUM CHLORIDE 10 ML SYRINGE IV SCH ×3 (12:26→20:44)
[2021-08-20] MEDS: ATORVASTATIN 40 MG TABLET PO SCH (20:43)
[2021-08-21] MEDS: 0.9 % SODIUM CHLORIDE 10 ML SYRINGE IV SCH (05:29)
[2021-08-21 06:43] LABS: ALT/SGPT 19 U/L (<40); AST/SGOT 18 U/L (<40); Albumin 2.5 gm/dL (3.2-5.2); Albumin/Globulin Ratio 0.7 (1.0-2.3); Alkaline Phosphatase 161 U/L (39-117); Bilirubin,Direct < 0.2 mg/dL (0-0.3); Bilirubin,Total 0.4 mg/dL (0.1-1.0); Blood Urea Nitrogen 13 mg/dL (8-23); Calcium 8.9 mg/dL (8.6-10.4); Carbon Dioxide 24 mmol/L (22-30); Chloride 106 mmol/L (96-108); Globulin 3.6 gm/dL (2.2-3.7); Glomerular Filtration Rate 51; Glucose 89 mg/dL (70-105); Lactate Dehydrogenase 152 U/L (135-225); Triglycerides 85 mg/dL (<150); Uric Acid 9.4 mg/dL (2.5-8.0)
[2021-08-21] MEDS: PANTOPRAZOLE 40 MG TABLET PO SCH (07:41)
[2021-08-21] MEDS: ENOXAPARIN 40 MG/0.4 ML SYRINGE SQ SCH (08:43)
[2021-08-21] MEDS: VANCOMYCIN ORAL SOL 1,000 MG/10 ML BOTTLE PO SCH (08:43)
[2021-08-21] MEDS: cefTRIAXone 1 GM VIAL IV SCH (08:44)
[2021-08-21] MEDS: FLUoxetine HCL 20 MG CAPSULE PO SCH (08:44)
[2021-08-21] MEDS: CLOPIDOGREL 75 MG TABLET PO SCH (08:44)
== END 2021-08-21 13:55 | disposition home health service (06) | DRG 871 ==
LOC: ED 12:35 → MEDSUR 16:38
PROVIDERS: ADMIT Internal Medicine; ATTEND Internal Medicine